=== PATIENT | male | born 1980 | race Caucasian/White ===

== ENCOUNTER 2016-12-22 08:25 | Emergency (ER) | payer SELFPAY ==
[~2016-12-22] VITALS: Ht 172.7 cm; Wt 48.0 kg
[~2016-12-22 08:25] MED LIST: Z.0.NO CURRENT MEDS
[2016-12-22 08:40] VITALS: BP 114/83; PULSE 104; RESP 14; TEMP 98.7; O2SAT 96
--- NOTE | 2016-12-22 10:10 | PD ---
HPI Chief Complaint: Skin Problem Time Seen by Provider: 09:57 Travel History International Travel<30 days: No Contact w/Intl Traveler<30days: No Traveled to known affect area: No History of Present Illness HPI HAS HAD SKIN RASH FOR ABOUT A MONTH THAT HAS NOT GONE AWAY, DIFFUSE THROUGHOUT BODY ALTHOUGH AT FIRST IT WAS ONLY TO ELBOW AND KNEES AREAS. TODAY HE ALSO C/O SOB X SINCE THIS MORNING WHICH NOW HAS RESOLVED?, DENIES ASSOC SYMPTOMS OF FEVER /CP/COUGH/N/V/D/ABD PAIN/CP AT THIS POINT. PFSH Past Medical History Medical History: Denies Significant Hx Diminished Hearing: No Past Surgical History Surgical History: No Previous Surgery Social History Alcohol Use: Yes (OCC) Tobacco Use: Yes (FORMER) Substance Use: No Allergies-Medications (Allergen,Severity, Reaction): Coded Allergies: No Known Allergies (Verified , 12/22/16) Reported Meds & Prescriptions Reported Meds & Active Scripts Active No Active Prescriptions or Reported Medications Review of Systems ROS Limitations: Other: (VERY THIN BODY HABITUS) Except as stated in HPI: all other systems reviewed are Neg Skin: Positive Rash (AT LEAST 1 MONTH LONG AND DIFFUSE THROUGHOUT BODY ) Physical Exam Narrative GENERAL: THIN BODY HABITUS SKIN: Warm and dry WITH MACULOPAPULAR RASH NOTED THROUGHOUT BODY INCLUDING PALMS AND SOLES WELL. HEAD: Atraumatic. Normocephalic. EYES: Pupils equal and round. No scleral icterus. No injection or drainage. ENT: No nasal bleeding or discharge. Mucous membranes pink and moist. NECK: Trachea midline. No JVD. CARDIOVASCULAR: Regular rate and rhythm. RESPIRATORY: No accessory muscle use. Clear to auscultation. Breath sounds equal bilaterally. GASTROINTESTINAL: Abdomen soft, non-tender, nondistended. Hepatic and splenic margins not palpable. MUSCULOSKELETAL: Extremities without clubbing, cyanosis, or edema. No obvious deformities. NEUROLOGICAL: Awake and alert. No obvious cranial nerve deficits. Motor grossly within normal limits. Five out of 5 muscle strength in the arms and legs. Normal speech. PSYCHIATRIC: Appropriate mood and affect; insight and judgment normal. Data Data Last Documented VS Vital Signs Date Time Temp Pulse Resp B/P Pulse Ox O2 Delivery O2 Flow Rate FiO2 12/22/16 10:57 78 16 128/75 98 Room Air 12/22/16 08:40 98.7 Orders Complete Blood Count With Diff (12/22/16 10:10) Comprehensive Metabolic Panel (12/22/16 10:10) B-Type Natriuretic Peptide (12/22/16 10:10) D-Dimer (12/22/16 10:10) Chest, Single Ap (12/22/16 10:10) Ct Pulmonary Angiogram (12/22/16 11:09) Iohexol 350 Inj (Omnipaque 350 Inj) (12/22/16 11:44) Labs Laboratory Tests Test 12/22/16 10:20 White Blood Count 10.3 TH/MM3 Red Blood Count 5.38 MIL/MM3 Hemoglobin 16.0 GM/DL Hematocrit 47.7 % Mean Corpuscular Volume 88.6 FL Mean Corpuscular Hemoglobin 29.8 PG Mean Corpuscular Hemoglobin 33.7 % Concent Red Cell Distribution Width 12.9 % Platelet Count 199 TH/MM3 Mean Platelet Volume 8.7 FL Neutrophils (%) (Auto) 77.0 % Lymphocytes (%) (Auto) 12.2 % Monocytes (%) (Auto) 8.0 % Eosinophils (%) (Auto) 0.3 % Basophils (%) (Auto) 2.5 % Neutrophils # (Auto) 7.9 TH/MM3 Lymphocytes # (Auto) 1.3 TH/MM3 Monocytes # (Auto) 0.8 TH/MM3 Eosinophils # (Auto) 0.0 TH/MM3 Basophils # (Auto) 0.3 TH/MM3 CBC Comment DIFF FINAL Differential Comment D-Dimer Quantitative (PE/DVT) 0.54 MG/L FEU Sodium Level 138 MEQ/L Potassium Level 3.3 MEQ/L Chloride Level 99 MEQ/L Carbon Dioxide Level 26.7 MEQ/L Anion Gap 12 MEQ/L Blood Urea Nitrogen 8 MG/DL Creatinine 0.87 MG/DL Estimat Glomerular Filtration 98 ML/MIN Rate Random Glucose 122 MG/DL Calcium Level 9.4 MG/DL Total Bilirubin 1.4 MG/DL Aspartate Amino Transf 16 U/L (AST/SGOT) Alanine Aminotransferase 22 U/L (ALT/SGPT) Alkaline Phosphatase 70 U/L B-Type Natriuretic Peptide 6 PG/ML Total Protein 8.3 GM/DL Albumin 4.7 GM/DL [facility] Medical Decision Making Medical Screen Exam Complete: Yes Emergency Medical Condition: Yes Medical Record Reviewed: Yes Differential Diagnosis RASH V VIRAL/BACTERIAL EXANTHEM V PNA V PE Narrative Course PT STABLE, WITH NO E/O PE ON CT CHEST, WILL GIVE BICILLIN AND REFER TO OUTPATIENT CLINIC Diagnosis Primary Impression: Rash and other nonspecific skin eruption Patient Instructions: Acute Rash (ED), General Instructions Scripts No Active Prescriptions or Reported Meds Disposition: 01 DISCHARGE HOME Condition: Stable Gerald Yen MD Dec 22, 2016 10:10
[2016-12-22 10:32] LABS: AUTOMATED NEUTROPHIL # 7.9 TH/MM3 (1.8-7.7); BASOPHIL # 0.3 TH/MM3 (0-0.2); BASOPHIL % 2.5 % (0.0-2.0); EOSINOPHIL % 0.3 % (0.0-4.0); HEMATOCRIT 47.7 % (39.0-51.0); LYMPH % 12.2 % (9.0-44.0); LYMPHOCYTE # 1.3 TH/MM3 (1.0-4.8); MEAN CELL VOLUME 88.6 FL (80.0-100.0); MEAN CORPUSCULAR HEMOGLOBIN 29.8 PG (27.0-34.0); MEAN CORPUSCULAR HGB CONC 33.7 % (32.0-36.0); PLATELET COUNT 199 TH/MM3 (150-450); RED BLOOD COUNT 5.38 MIL/MM3 (4.50-5.90); RED CELL DISTRIBUTION WIDTH 12.9 % (11.6-17.2); WHITE BLOOD COUNT 10.3 TH/MM3 (4.0-11.0)
[2016-12-22 10:34] LABS: HEMO FLAGS DIFF FINAL
[2016-12-22 10:40] LABS: CHLORIDE 99 MEQ/L (98-107); POTASSIUM 3.3 MEQ/L (3.5-5.1); SODIUM (NA) 138 MEQ/L (136-145)
--- NOTE | 2016-12-22 10:42 | RADRPT ---
EXAM DATE/TIME: 12/22/2016 10:34 [facility] COMPARISON: No previous studies available for comparison. INDICATIONS : Short of breath MEDICAL HISTORY : None. SURGICAL HISTORY : None. ENCOUNTER: Initial ACUITY: 1 day PAIN SCORE: 0/10 LOCATION: Bilateral chest FINDINGS: A single view of the chest demonstrates the lungs to be symmetrically aerated without evidence of mas s, infiltrate or effusion. The cardiomediastinal contours are unremarkable. Osseous structures are intact. CONCLUSION: Normal examination for a patient of this age. Bhanu Rainey MD on December 22, 2016 at 10:39 Board Certified Radiologist. This report was verified electronically.
[2016-12-22 10:43] LABS: ANION GAP 12 MEQ/L (5-15); BICARBONATE 26.7 MEQ/L (21.0-32.0)
[2016-12-22 10:44] LABS: BLOOD UREA NITROGEN 8 MG/DL (7-18)
[2016-12-22 10:47] LABS: ALT (GPT) 22 U/L (12-78); AST (GOT) 16 U/L (15-37); GLOMERULAR FILTRATION RATE 98 ML/MIN (>89)
[2016-12-22 10:48] LABS: TOTAL BILIRUBIN ADULT 1.4 MG/DL (0.2-1.0)
[2016-12-22 10:49] LABS: ALKALINE PHOSPHATASE 70 U/L (45-117)
[2016-12-22 10:57] VITALS: BP 128/75; PULSE 78; RESP 16; O2SAT 98
[2016-12-22] MEDS ORDERED: IOHEXOL 350 MG/ML 10 ML VIAL (for RAD DIAG) IV ONE (11:44)
--- NOTE | 2016-12-22 11:48 | RADRPT ---
EXAM DATE/TIME: 12/22/2016 11:20 [facility] COMPARISON: No previous studies available for comparison. INDICATIONS : Patient has shortness of breath and a rash. IV CONTRAST: 99 cc Omnipaque 350 (iohexol) IV RADIATION DOSE: 5.79 CTDIvol (mGy) MEDICAL HISTORY : None Possible scabes. SURGICAL HISTORY : None. ENCOUNTER: Initial ACUITY: 1 day PAIN SCALE: 5/10 LOCATION: Bilateral chest TECHNIQUE: Volumetric scanning of the chest was performed using a pulmonary embolism protocol MIP images were re constructed. Using automated exposure control and adjustment of the mA and/or kV according to patien t size, radiation dose was kept as low as reasonably achievable to obtain optimal diagnostic quality images. DICOM format image data is available electronically for review and comparison. FINDINGS: PULMONARY ARTERIES: No filling defects are seen in the pulmonary arteries through the segmental level. LUNGS: There is no consolidation or pneumothorax . No concerning pulmonary nodule is visualized. PLEURAE: There is no pleural thickening or pleural effusion. MEDIASTINUM: There is good visualization of the great vessels of the middle mediastinum. No evidence of mediastin al or hilar adenopathy/mass. MUSCULOSKELETAL: Within normal limits for patient age. MISCELLANEOUS: The visualized upper abdominal organs demonstrate no acute abnormality. CONCLUSION: 1. No evidence of PE. 2. No acute infiltrates. Bhanu Rainey MD on December 22, 2016 at 11:43 Board Certified Radiologist. This report was verified electronically.
[2016-12-22] MEDS ORDERED: PENICILLIN G BENZATHINE 2,400,000 UNITS/4 ML SYRINGE IM ONE (12:30)
[2016-12-22] MEDS ORDERED: PENICILLIN G BENZATHINE 1,200,000 UNITS/2 ML SYRINGE IM ONE (12:45)
== END 2016-12-22 13:35 | disposition home or self-care (01) ==
LOC: PHED 08:25
DX: R21 Rash and other nonspecific skin eruption (principal); Z87.891 Personal history of nicotine dependence
CPT/HCPCS: 71010; 71275; 80053; 83880; 85025; 85379; 96372; 99285; J0561; Q9967

== ENCOUNTER 2016-12-23 23:26 | Emergency (ER) | payer SELFPAY ==
[~2016-12-23] VITALS: Ht 172.7 cm; Wt 48.8 kg
[2016-12-23 23:30] VITALS: BP 111/76; PULSE 107; RESP 16; TEMP 99.2; O2SAT 97
--- NOTE | 2016-12-24 00:15 | PD ---
HPI Chief Complaint: Respiratory Distress Time Seen by Provider: 00:12 Travel History International Travel<30 days: No Contact w/Intl Traveler<30days: No Traveled to known affect area: No History of Present Illness HPI The patient is a 36-year-old male who came in because of difficulty breathing when laying down. This apparently has resolved, he does not have any problem with breathing laying down now. He does have generalized weakness and has a decreased appetite since yesterday. He denies any nausea, vomiting or diarrhea. He denies any fever although he does have a 99.2 temperature here. He denies any dysuria, frequency or urgency. He quit smoking 5 years ago. He states he has had very little feet all day today. [facility] Past Medical History Medical History: Denies Significant Hx Diminished Hearing: No Tetanus Vaccination: Unknown Influenza Vaccination: No Past Surgical History Surgical History: No Previous Surgery Social History Alcohol Use: Yes (OCC) Tobacco Use: Yes (FORMER) Substance Use: No Allergies-Medications (Allergen,Severity, Reaction): Coded Allergies: No Known Allergies (Verified , 12/23/16) Reported Meds & Prescriptions Reported Meds & Active Scripts Active No Active Prescriptions or Reported Medications Review of Systems Except as stated in HPI: all other systems reviewed are Neg Physical Exam Narrative GENERAL: The patient appears thin but is alert and oriented 3. He appears slightly dehydrated. His vital signs show temperature 99.2 with a heart rate of 107 but are otherwise normal. SKIN: Focused skin assessment warm/dry. HEAD: Atraumatic. Normocephalic. EYES: Pupils equal and round. No scleral icterus. No injection or drainage. ENT: No nasal bleeding or discharge. Mucous membranes pink and moist. NECK: Trachea midline. No JVD. CARDIOVASCULAR: Regular rate and rhythm. No murmur appreciated. RESPIRATORY: No accessory muscle use. Clear to auscultation. Breath sounds equal bilaterally. GASTROINTESTINAL: Abdomen soft, non-tender, nondistended. Hepatic and splenic margins not palpable. No guarding or rebound is present. MUSCULOSKELETAL: No obvious deformities. No clubbing. No cyanosis. No edema. NEUROLOGICAL: Awake and alert. No obvious cranial nerve deficits. Motor grossly within normal limits. Normal speech. PSYCHIATRIC: Appropriate mood and affect; insight and judgment normal. Data Data Last Documented VS Vital Signs Date Time Temp Pulse Resp B/P Pulse Ox O2 Delivery O2 Flow Rate FiO2 12/24/16 00:40 85 18 112/72 98 Room Air 12/23/16 23:30 99.2 Orders Complete Blood Count With Diff (12/24/16 00:12) Comprehensive Metabolic Panel (12/24/16 00:12) Labs Laboratory Tests Test 12/24/16 00:28 White Blood Count 10.1 TH/MM3 Red Blood Count 4.96 MIL/MM3 Hemoglobin 14.9 GM/DL Hematocrit 42.9 % Mean Corpuscular Volume 86.5 FL Mean Corpuscular Hemoglobin 30.0 PG Mean Corpuscular Hemoglobin 34.7 % Concent Red Cell Distribution Width 12.6 % Platelet Count 191 TH/MM3 Mean Platelet Volume 8.4 FL Neutrophils (%) (Auto) 73.9 % Lymphocytes (%) (Auto) 14.2 % Monocytes (%) (Auto) 10.6 % Eosinophils (%) (Auto) 0.6 % Basophils (%) (Auto) 0.7 % Neutrophils # (Auto) 7.4 TH/MM3 Lymphocytes # (Auto) 1.4 TH/MM3 Monocytes # (Auto) 1.1 TH/MM3 Eosinophils # (Auto) 0.1 TH/MM3 Basophils # (Auto) 0.1 TH/MM3 CBC Comment DIFF FINAL Differential Comment Sodium Level 139 MEQ/L Potassium Level 2.9 MEQ/L Chloride Level 101 MEQ/L Carbon Dioxide Level 26.5 MEQ/L Anion Gap 12 MEQ/L Blood Urea Nitrogen 7 MG/DL Creatinine 0.80 MG/DL Estimat Glomerular Filtration 108 ML/MIN Rate Random Glucose 118 MG/DL Calcium Level 8.7 MG/DL Total Bilirubin 1.7 MG/DL Aspartate Amino Transf 16 U/L (AST/SGOT) Alanine Aminotransferase 21 U/L (ALT/SGPT) Alkaline Phosphatase 62 U/L Total Protein 7.6 GM/DL Albumin 4.4 GM/DL [facility] Medical Decision Making Medical Screen Exam Complete: Yes Emergency Medical Condition: Yes Medical Record Reviewed: Yes Differential Diagnosis Viral syndrome, pneumonia, bronchitis, anxiety, dehydration, electrolyte disorder, renal insufficiency, congestive heart failurehighly unlikely Narrative Course The patient likely has a viral syndrome. The CBC is normal which suggest viral etiology. He does have a hypokalemia. The bilirubin of 1.7 white represents cholestasis. Plan: The patient will be given a potassium supplement for 7 days. Diagnosis Primary Impression: Viral syndrome Additional Impression: Hypokalemia Additional Instructions: The potassium pill is one tablet daily for 7 days. He will need to follow-up with his primary care physician this week. Med/Other Pt SpecificInfo: Prescription(s) given Scripts Potassium Chloride ER (K-Tab)10 Meq Tab10 Meq PO DAILY 7 Days Ref 0 Prov:Jasson Johnson MD 12/24/16 Disposition: 01 DISCHARGE HOME Condition: Stable Jasson Johnson MD Dec 24, 2016 00:15
[2016-12-24 00:35] LABS: AUTOMATED NEUTROPHIL # 7.4 TH/MM3 (1.8-7.7); BASOPHIL # 0.1 TH/MM3 (0-0.2); BASOPHIL % 0.7 % (0.0-2.0); EOSINOPHIL # 0.1 TH/MM3 (0-0.4); EOSINOPHIL % 0.6 % (0.0-4.0); HEMATOCRIT 42.9 % (39.0-51.0); HEMO FLAGS DIFF FINAL; LYMPH % 14.2 % (9.0-44.0); LYMPHOCYTE # 1.4 TH/MM3 (1.0-4.8); MEAN CELL VOLUME 86.5 FL (80.0-100.0); MEAN CORPUSCULAR HGB CONC 34.7 % (32.0-36.0); MONO % 10.6 % (0.0-8.0); NEUT % 73.9 % (16.0-70.0); PLATELET COUNT 191 TH/MM3 (150-450); RED BLOOD COUNT 4.96 MIL/MM3 (4.50-5.90); RED CELL DISTRIBUTION WIDTH 12.6 % (11.6-17.2); WHITE BLOOD COUNT 10.1 TH/MM3 (4.0-11.0)
[2016-12-24 00:40] VITALS: BP 112/72; PULSE 85; RESP 18; O2SAT 98
[2016-12-24 01:28] LABS: ALKALINE PHOSPHATASE 62 U/L (45-117); ALT (GPT) 21 U/L (12-78); ANION GAP 12 MEQ/L (5-15); AST (GOT) 16 U/L (15-37); BICARBONATE 26.5 MEQ/L (21.0-32.0); BLOOD UREA NITROGEN 7 MG/DL (7-18); CHLORIDE 101 MEQ/L (98-107); GLOMERULAR FILTRATION RATE 108 ML/MIN (>89); SODIUM (NA) 139 MEQ/L (136-145); TOTAL BILIRUBIN ADULT 1.7 MG/DL (0.2-1.0)
[2016-12-24 01:29] LABS: POTASSIUM 2.9 MEQ/L (3.5-5.1)
[2016-12-24] MEDS ORDERED: K-TA10TA PO (01:37)
[2016-12-24 01:40] VITALS: BP 118/75; TEMP 97.4
[2016-12-24] MEDS ORDERED: POTASSIUM CHLORIDE 20 MEQ CONTROLLED RELEASE TAB PO ONE (01:45)
== END 2016-12-24 01:58 | disposition home or self-care (01) ==
LOC: PHED 23:26
DX: B34.9 Viral infection, unspecified (principal); E87.6 Hypokalemia
CPT/HCPCS: 80053; 85025; 99283

== ENCOUNTER 2017-08-26 15:43 | Inpatient (IN) | payer SELFPAY ==
[2017-08-26] VITALS (7 sets, daily range): BP systolic 121–152; BP diastolic 73–80; PULSE 80–117; RESP 16–18; TEMP 97.1–99.3; O2SAT 95–98
[~2017-08-26] VITALS: Ht 175.3 cm; Wt 50.7 kg
[~2017-08-26 15:43] MED LIST changes: +K-TA10TA PO; -Z.0.NO CURRENT MEDS
[2017-08-26] MEDS ORDERED: SODIUM CHLOR 0.9% 1000 ML INJ 1,000 ML IV SCH (16:19)
--- NOTE | 2017-08-26 16:27 | PD ---
HPI . Abdominal pain Chief Complaint: Abdominal Pain Time Seen by Provider: 16:14 Travel History International Travel<30 days: No Contact w/Intl Traveler<30days: No Traveled to known affect area: No History of Present Illness HPI This patient presents with a chief complaint of abdominal pain. Onset was 2 days ago. The pain is located mostly in the right lower quadrant. He states that the pain comes and goes. He describes it as ocean waves and ebbing and flowing across his lower abdomen. He rates the pain 7/10. Pain is exacerbated by lifting his right leg and walking. Associated symptoms include a subjective fever and vomiting 2 days ago but none since. He has had no diarrhea. He denies any urinary tract symptoms. He denies any previous similar history. [facility] Past Medical History Medical History: Denies Significant Hx Diminished Hearing: No Tetanus Vaccination: < 5 Years Influenza Vaccination: No Past Surgical History Surgical History: No Previous Surgery Social History Alcohol Use: No Tobacco Use: No Substance Use: No Allergies-Medications (Allergen,Severity, Reaction): Coded Allergies: No Known Allergies (Verified Allergy, Unknown, 08/26/17) Reported Meds & Prescriptions Reported Meds & Active Scripts Active No Active Prescriptions or Reported Medications Review of Systems Except as stated in HPI: all other systems reviewed are Neg General / Constitutional: Positive: Fever, Chills Gastrointestinal: Positive: Nausea, Vomiting (2 days ago but none since), Abdominal Pain, No: Diarrhea Genitourinary: No: Urgency, Frequency, Dysuria Physical Exam Narrative GENERAL: Very thin man who is in no acute distress. His BMI is 16. SKIN: warm/dry. Normal color and turgor. HEAD: Normocephalic. Atraumatic. EYES: Pupils equal and round. No scleral icterus. No injection or drainage. ENT: No nasal bleeding or discharge. Mucous membranes pink and moist. NECK: Trachea midline. Full range of motion without pain.. CARDIOVASCULAR: Sinus tachycardia. RESPIRATORY: No accessory muscle use. Clear to auscultation. Breath sounds equal bilaterally. GASTROINTESTINAL: Abdomen soft. Lower abdominal tenderness. No point tenderness. No guarding or rebound. Bowel sounds present. Nondistended. Lopez MUSCULOSKELETAL: No obvious deformities. NEUROLOGICAL: Awake and alert. No obvious cranial nerve deficits. Motor grossly within normal limits. Normal speech. PSYCHIATRIC: Appropriate mood and affect; insight and judgment normal. Data Data Last Documented VS Vital Signs Date Time Temp Pulse Resp B/P (MAP) Pulse Ox O2 Delivery O2 Flow Rate FiO2 08/26/17 15:45 98.4 117 18 137/80 (99) 98 Orders Orders Basic Metabolic Panel (Bmp) (08/26/17 16:19) Complete Blood Count With Diff (08/26/17 16:19) Urinalysis - C+S If Indicated (08/26/17 16:19) Ct Abd/Pel W Iv Contrast(Rout) (08/26/17 16:19) Iv Access Insert/Monitor (08/26/17 16:19) Morphine Inj (Morphine Inj) (08/26/17 16:30) Ondansetron Inj (Zofran Inj) (08/26/17 16:30) Sodium Chlor 0.9% 1000 Ml Inj (Ns 1000 M (08/26/17 16:19) Sodium Chloride 0.9% Flush (Ns Flush) (08/26/17 16:30) Iohexol 350 Inj (Omnipaque 350 Inj) (08/26/17 16:47) Piperacil-Tazo 3.375 Gm Premix (Zosyn 3. (08/26/17 17:30) Labs Laboratory Tests Test 08/26/17 16:38 08/26/17 16:39 Urine Color YELLOW Urine Turbidity CLEAR Urine pH 5.5 Urine Specific [place] 1.015 Urine Protein NEG mg/dL Urine Glucose (UA) NEG mg/dL Urine Ketones 15 mg/dL Urine Occult Blood NEG Urine Nitrite NEG Urine Bilirubin NEG Urine Leukocyte Esterase NEG Urine WBC 0-2 /hpf Urine Squamous Epithelial Cells 0-5 /hpf Urine Mucus FEW /lpf Microscopic Urinalysis Comment CULT NOT INDICATED White Blood Count 13.3 TH/MM3 Red Blood Count 5.20 MIL/MM3 Hemoglobin 15.3 GM/DL Hematocrit 47.0 % Mean Corpuscular Volume 90.3 FL Mean Corpuscular Hemoglobin 29.4 PG Mean Corpuscular Hemoglobin Concent 32.5 % Red Cell Distribution Width 13.1 % Platelet Count 175 TH/MM3 Mean Platelet Volume 9.1 FL Neutrophils (%) (Auto) 78.1 % Lymphocytes (%) (Auto) 8.2 % Monocytes (%) (Auto) 10.2 % Eosinophils (%) (Auto) 0.5 % Basophils (%) (Auto) 3.0 % Neutrophils # (Auto) 10.3 TH/MM3 Lymphocytes # (Auto) 1.1 TH/MM3 Monocytes # (Auto) 1.4 TH/MM3 Eosinophils # (Auto) 0.1 TH/MM3 Basophils # (Auto) 0.4 TH/MM3 CBC Comment DIFF FINAL Differential Comment Blood Urea Nitrogen 13 MG/DL Creatinine 0.84 MG/DL Random Glucose 130 MG/DL Calcium Level 8.7 MG/DL Sodium Level 134 MEQ/L Potassium Level 4.2 MEQ/L Chloride Level 100 MEQ/L Carbon Dioxide Level 25.1 MEQ/L Anion Gap 9 MEQ/L Estimat Glomerular Filtration Rate 102 ML/MIN [facility] Medical Decision Making Medical Screen Exam Complete: Yes Emergency Medical Condition: Yes Differential Diagnosis Differential diagnosis of abdominal pain includes but is not limited to gastritis, pancreatitis, hepatitis, gastroenteritis, constipation, urinary retention, peptic ulcer disease, diverticulitis or appendicitis Narrative Course This patient presents with a 2 day history of lower abdominal pain. He is tachycardic on exam. Abdominal pain workup is in process including a CT scan of his abdomen. In the meantime, he will be treated with IV fluids and IV morphine. CBC & BMP Diagram 08/26/17 16:39 Calcium Level 8.[address] scan shows acute appendicitis probably with localized perforation. The results of the CT scan have been discussed with the patient. I have consulted Dr. Barreto who will be in to see the patient. Dr. Barreto has requested Zosyn. This has been ordered. Physician Communication Physician Communication Dr. Barreto Diagnosis Primary Impression: Abdominal pain Qualified Codes: R10.31 - Right lower quadrant pain Additional Impression: Appendicitis Qualified Codes: K35.3 - Acute appendicitis with localized peritonitis Admitting Information Admitting Physician Requests: Observation Scripts No Active Prescriptions or Reported Meds Condition: Stable Charlene Herzog MD Aug 26, 2017 16:27
[2017-08-26] MEDS ORDERED: ONDANSETRON HCL 4 MG/2 ML VIAL IVP ONE (16:30)
[2017-08-26] MEDS ORDERED: MORPHINE SULFATE 4 MG/ML INJ IV PUSH ONE (16:30)
[2017-08-26] MEDS ORDERED: SODIUM CHLORIDE 0.9% FLUSH 10 ML FLUSH IV FLUSH PRN ×2 (16:30→18:00)
[2017-08-26] MEDS ORDERED: IOHEXOL 350 MG/ML 10 ML VIAL (for RAD DIAG) IVCONTRAST ONE (16:47)
[2017-08-26 16:51] LABS: BILIRUBIN, URINE NEG (NEG); BLOOD, URINE NEG (NEG); GLUCOSE,URINE NEG (NEG); KETONE, URINE 15 mg/dL (NEG); NITRITE,URINE NEG (NEG); PH, URINE 5.5 (5.0-8.5); URINE LEUKOCYTE ESTERASE NEG (NEG)
[2017-08-26 16:59] LABS: URINE COLOR YELLOW (YELLW/STRAW)
[2017-08-26 17:00] LABS: MUCUS URINE FEW /lpf (OCC); SQUAMOUS EPITHELIAL CELL URINE 0-5 /hpf (0-5); WBC, URINE 0-2 /hpf (0-5)
[2017-08-26 17:03] LABS: AUTOMATED NEUTROPHIL # 10.3 TH/MM3 (1.8-7.7); BASOPHIL # 0.4 TH/MM3 (0-0.2); EOSINOPHIL # 0.1 TH/MM3 (0-0.4); EOSINOPHIL % 0.5 % (0.0-4.0); HEMOGLOBIN 15.3 GM/DL (13.0-17.0); LYMPH % 8.2 % (9.0-44.0); LYMPHOCYTE # 1.1 TH/MM3 (1.0-4.8); MEAN CELL VOLUME 90.3 FL (80.0-100.0); MEAN CORPUSCULAR HEMOGLOBIN 29.4 PG (27.0-34.0); MEAN CORPUSCULAR HGB CONC 32.5 % (32.0-36.0); MEAN PLATELET VOLUME 9.1 FL (7.0-11.0); MONO % 10.2 % (0.0-8.0); MONOCYTE # 1.4 TH/MM3 (0-0.9); NEUT % 78.1 % (16.0-70.0); PLATELET COUNT 175 TH/MM3 (150-450); RED CELL DISTRIBUTION WIDTH 13.1 % (11.6-17.2); WHITE BLOOD COUNT 13.3 TH/MM3 (4.0-11.0)
[2017-08-26 17:07] LABS: CALCIUM 8.7 MG/DL (8.5-10.1)
[2017-08-26 17:08] LABS: BICARBONATE 25.1 MEQ/L (21.0-32.0)
[2017-08-26 17:11] LABS: CREATININE 0.84 MG/DL (0.60-1.30)
--- NOTE | 2017-08-26 17:19 | RADRPT ---
EXAM DATE/TIME: 08/26/2017 16:43 [facility] COMPARISON: No previous studies available for comparison. INDICATIONS : Right lower quadrant pain. IV CONTRAST: 90 cc Omnipaque 350 (iohexol) IV ORAL CONTRAST: No oral contrast ingested. RADIATION DOSE: 4.46 CTDIvol (mGy) MEDICAL HISTORY : None SURGICAL HISTORY : None. ENCOUNTER: Initial ACUITY: 3 days PAIN SCALE: 5/10 LOCATION: Right lower quadrant TECHNIQUE: Volumetric scanning of the abdomen and pelvis was performed. Using automated exposure control and ad justment of the mA and/or kV according to patient size, radiation dose was kept as low as reasonably achievable to obtain optimal diagnostic quality images. DICOM format image data is available electro nically for review and comparison. FINDINGS: LOWER LUNGS: The visualized lower lungs are clear. LIVER: Homogeneous enhancement with at least 5 incidental low density lesions which are too small to charact erize. No highly suspicious liver lesion is seen. There is no dilation of the biliary tree. No calc ified gallstones. SPLEEN: Normal size without lesion. PANCREAS: Within normal limits. KIDNEYS: Normal in size and shape. There is no mass, stone or hydronephrosis. ADRENAL GLANDS: Within normal limits. VASCULAR: There is no aortic aneurysm. BOWEL/MESENTERY: The stomach and small bowel are within normal limits. Terminal ileum is normal. There is a dilated fl uid-filled appendix measuring 14 mm. It contains an 8 mm appendicolith and there is surrounding fluid . No free intraperitoneal air is identified. ABDOMINAL WALL: Within normal limits. RETROPERITONEUM: There is no lymphadenopathy. BLADDER: No wall thickening or mass. REPRODUCTIVE: Within normal limits. INGUINAL: There is no lymphadenopathy or hernia. MUSCULOSKELETAL: No acute osseous abnormality is identified. Bone islands are present. CONCLUSION: 1. Abnormal findings diagnostic of acute appendicitis. The appendix is abnormally dilated, fluid-fill ed and contains an appendicolith. There is surrounding inflammatory change. This finding was telephon ed to the ordering physician. 2. No other acute finding is identified. Pipo Wu MD on August 26, 2017 at 17:13 Board Certified Radiologist. This report was verified electronically.
[2017-08-26] MEDS ORDERED: PIPERACIL-TAZO 3.375 GM PREMIX 50 ML IV ONE (17:30)
[2017-08-26] MEDS ORDERED: ONDANSETRON HCL 4 MG/2 ML VIAL IV PUSH PRN (18:00)
[2017-08-26] MEDS ORDERED: Post-op Orders (for Pharmacy) XX ONE (18:00)
[2017-08-26] MEDS ORDERED: HYDROmorphone HCL PF 1 MG/ML VIAL IV PUSH PRN (18:00)
[2017-08-26] MEDS ORDERED: ACETAMINOPHEN/HYDROcodone 325 MG/5 MG TAB PO PRN (18:00)
[2017-08-26] MEDS ORDERED: BUPIVACAINE/EPINEPHRINE 0.25% 50 ML VIAL ONE (20:27)
[2017-08-26] MEDS ORDERED: METOPROLOL TARTRATE 25 MG TAB PO PRN (20:30)
[2017-08-26] MEDS ORDERED: CHLORHEXIDINE GLUCONATE 2 % 1 PACK (2 CLOTHS) TOPICAL PRN (20:30)
[2017-08-26] MEDS ORDERED: POVIDONE IODINE 5% (ANTISEPSIS KIT) 4 APPLICATIONS EACH NARE PRN (20:30)
[2017-08-26] MEDS ORDERED: SODIUM CHLORID 0.9% 500 ML IV PRN (20:30)
[2017-08-26] MEDS ORDERED: LACTATED RINGER'S 1000 ML IV PRN (20:30)
[2017-08-26] MEDS ORDERED: MIDAZOLAM HCL 2 MG/2 ML VIAL ONE (20:40)
[2017-08-26] MEDS: SODIUM CHLORIDE 0.9% FLUSH 10 ML FLUSH IV FLUSH SCH (21:00)
[2017-08-26] MEDS: DOCUSATE SODIUM 100 MG CAP PO SCH (21:00)
[2017-08-26] MEDS ORDERED: ACETAMINOPHEN 1000 MG/100 ML 100 ML IV ONE (21:01)
[2017-08-26] MEDS ORDERED: FAMOTIDINE 20 MG/2 ML VIAL ONE (21:02)
--- NOTE | 2017-08-26 21:19 | HHI.PR ---
Immediate Post Op Note Procedure Date: Aug 26, 2017 Pre Op Diagnosis: acute appendicitis Post Op Diagnosis: same Surgeon: Iam Barreto MD Instrument And Electrical Technician(s): see or sheet Procedure: lap appy Findings: distended appendix, localized perforation Complications: none Specimen(s) removed: appendix Estimated blood loss: 5cc Anesthesia: General Drains: SWATI Patient to: PACU Patient Condition: Good Iam Barreto MD Aug 26, 2017 21:19
--- NOTE | 2017-08-27 03:51 | MH ---
cc: Iam Barreto MD DATE OF ADMISSION: 08/26/2017 CHIEF COMPLAINT: Abdominal pain. HISTORY OF PRESENT ILLNESS: The patient is a 37-year-old male who presents with acute onset of right lower quadrant abdominal pain. He states the pain started somewhat diffuse umbilical and migrated to right lower quadrant. He stated the pain started on Saturday, 2 days ago and progressively got worse today. He noted pain at that time was 8/10. Currently it is a 7/10, worse with movement, better when lying still. The patient has never had pain significant like this before. He did have episodes of vomiting and did have some fevers as well. He came to the emergency department for further evaluation including white blood cell count of 13,[address] scan showing acute appendicitis. Therefore surgery was consulted. PAST MEDICAL HISTORY: The patient has no past medical history. PAST SURGICAL HISTORY: The patient has no surgeries. SOCIAL HISTORY: Denies smoking, ETOH or IVDA. ALLERGIES: NO KNOWN DRUG ALLERGIES. MEDICATIONS: See EMR. FAMILY HISTORY: Denies coronary artery disease. REVIEW OF SYSTEMS: GENERAL: Complained of fever and chills. HEENT: Denies eye pain, ear pain. NECK: Denies ____ pain. LUNGS: Denies cough or wheeze. HEART: Denies chest pain or palpitations. ABDOMEN: Denies nausea and vomiting. Complains of abdominal pain, complains of vomiting. GENITOURINARY: Denies dysuria, hematuria. ENDOCRINE: Denies polyuria, polydipsia. EXTREMITIES: Denies arthralgias, myalgias. NEUROLOGIC: Denies numbness or tingling. PSYCHIATRIC: Denies changes in sensorium. PHYSICAL EXAMINATION: GENERAL: The patient in no acute distress. VITAL SIGNS: Temperature 98.4, plus 117, blood pressure 137/80, respirations 18, saturation 98%. HEENT: Pupils equal, round and reactive. NECK: Supple. Trachea midline. LUNGS: Clear to auscultation bilaterally. HEART: S1, S2 regular rhythm. ABDOMEN: Soft, positive tension to palpation right lower quadrant, mild rebound right lower quadrant. EXTREMITIES: Warm, well perfused. NEUROLOGIC: AAO x 4. 5/5 motor all extremities. PSYCHIATRIC: Appropriate insight. LABORATORY AND DIAGNOSTIC DATA: WBC 13.3, hemoglobin 15.3, hematocrit 47, platelets 175. Sodium 134, potassium 4.2, chloride 100, BUN 13, creatinine 0.8, calcium 8.7. CT reviewed by myself showing acute appendicitis, no evidence of abscess on CT scan. ASSESSMENT: The patient is a 37-year-old male with acute appendicitis. PLAN: After full workup, the patient with above noted issues. Currently, patient needs to be NPO, IV fluids, IV pain control, IV antibiotics. Discussed with patient regarding emergent laparoscopic appendectomy. He understands, agrees and would like to proceed. MD LOI Escalante/rt , 09:07 PM , 03:38 AM
[2017-08-27] MEDS: PIPERACIL-TAZO 3.375 GM PREMIX 50 ML IV SCH ×3 (04:53→17:51)
[2017-08-27 07:46] LABS: CALCIUM 8.4 MG/DL (8.5-10.1)
[2017-08-27 07:47] LABS: AUTOMATED NEUTROPHIL # 14.4 TH/MM3 (1.8-7.7); BASOPHIL # 0.1 TH/MM3 (0-0.2); BASOPHIL % 0.5 % (0.0-2.0); BICARBONATE 28.2 MEQ/L (21.0-32.0); HEMATOCRIT 42.4 % (39.0-51.0); HEMOGLOBIN 14.3 GM/DL (13.0-17.0); LYMPH % 3.7 % (9.0-44.0); LYMPHOCYTE # 0.6 TH/MM3 (1.0-4.8); MEAN CELL VOLUME 90.9 FL (80.0-100.0); MEAN CORPUSCULAR HEMOGLOBIN 30.7 PG (27.0-34.0); MEAN CORPUSCULAR HGB CONC 33.8 % (32.0-36.0); MEAN PLATELET VOLUME 9.6 FL (7.0-11.0); MONO % 6.1 % (0.0-8.0); NEUT % 89.7 % (16.0-70.0); PLATELET COUNT 137 TH/MM3 (150-450); RED BLOOD COUNT 4.66 MIL/MM3 (4.50-5.90); RED CELL DISTRIBUTION WIDTH 13.1 % (11.6-17.2); WHITE BLOOD COUNT 16.1 TH/MM3 (4.0-11.0)
[2017-08-27 07:50] LABS: CREATININE 0.67 MG/DL (0.60-1.30)
[2017-08-27 08:00] VITALS: BP 93/50; PULSE 66; RESP 18; TEMP 97.3; O2SAT 97
[2017-08-27] MEDS: DOCUSATE SODIUM 100 MG CAP PO SCH ×2 (08:35→21:50)
[2017-08-27] MEDS: SODIUM CHLORIDE 0.9% FLUSH 10 ML FLUSH IV FLUSH SCH ×2 (08:36→21:50)
--- NOTE | 2017-08-27 10:44 | MP ---
cc: Iam Barreto MD DATE OF OPERATION: 08/26/2017 PREOPERATIVE DIAGNOSIS: Acute appendicitis. POSTOPERATIVE DIAGNOSIS: Acute appendicitis, localized perforation of appendix. SURGEON: Iam Barreto MD PROCEDURE PERFORMED: Laparoscopic appendectomy. WELL SHOOTER: See OR sheet. ANESTHESIA: GETA. INTRAVENOUS FLUIDS: See anesthesia sheet. ESTIMATED BLOOD LOSS: 5 mL. DRAINS: 10-Ecuadorean round Luis drain placed in the suprapubic area above appendiceal stump. FINDINGS: Localized perforation with feculent, contained perforated abscess around the appendix. SPECIMENS: Appendix. INDICATION: Patient is a 37-year-old male who presents with acute onset of abdominal pain in the right lower quadrant. Patient had CT scan findings of acute appendicitis; therefore, decision was made for laparoscopic appendectomy. Discussed with patient in detail. DETAILS OF PROCEDURE: The patient was taken to the operating room, placed in the supine position. He was prepped and draped in the usual sterile fashion after induction of general endotracheal anesthesia. Brief time-out identifying correct patient, procedure, surgical site and we were all in agreement. Attention was first directed to the umbilicus, where local anesthetic injected, stab ankita incision made with an 11 blade. The umbilicus was grasped with a towel clamp and elevated anteriorly. The Veress needle was placed and intraabdominal placement confirmed with saline drop test. Abdomen insufflated to 15 mm pneumoperitoneum. Veress needle changed for a 5 mm Visiport trocar and entered safely. No evidence of injury on observation. Two other trocars were placed; one suprapubic 5 mm, followed by a left lower quadrant 12 mm. Patient placed in Trendelenburg, airplaned to the left. The right lower quadrant was explored. Upon its exploration, there was noted to be localized perforation with feculent abscess material in the right lower quadrant. It looked like the midappendix had perforated in this area. Appendix was mobilized and dissected out in the usual fashion. The monopolar [place] was used to create a window in the base of the mesoappendix. ALEXIS-35 was used to transect the base of the appendix, then the mesoappendix was transected as well. The appendix was placed in the appendiceal bag and removed from the left lower quadrant of the abdomen. Irrigation used to irrigate the right lower quadrant until effluent was clear. Small 10-Ecuadorean round drain was placed in the right lower quadrant through the suprapubic incision and after the abdomen was irrigated. This was secured in place with 2-0 nylon. Abdomen desufflated, the left lower quadrant ports were removed, was closed with 0 Vicryl to the fascia, 4-0 Monocryl was used for subcuticular suture. The sterile dressings were placed. Of note, the appendix was removed with the Endo Catch bag through the left lower quadrant port. Patient tolerated the procedure well, was moving arms with no complications. All lap and instrument counts were correct at the end of the procedure. The patient was extubated and taken to the PACU. MD LOI Escalante/PH[facility] , 09:06 AM , 10:40 AM
[2017-08-27 12:00] VITALS: BP 100/56; PULSE 66; RESP 18; TEMP 97.4; O2SAT 100
--- NOTE | 2017-08-27 12:58 | HHI.PR ---
Subjective Subjective Notes Resting in bed Still feeling a little "sluggish" Objective Vitals/I&O Vital Signs Date Time Temp Pulse Resp B/P (MAP) Pulse Ox O2 Delivery O2 Flow Rate FiO2 08/26/17 23:02 97.1 86 18 131/76 (94) 95 08/26/17 23:00 Room Air 08/26/17 22:30 5 Labs Laboratory Tests Test 08/26/17 16:38 08/26/17 16:39 08/27/17 06:35 Urine Color YELLOW Urine Turbidity CLEAR Urine pH 5.5 Urine Specific [place] 1.015 Urine Protein NEG Urine Glucose (UA) NEG Urine Ketones 15 Urine Occult Blood NEG Urine Nitrite NEG Urine Bilirubin NEG Urine Leukocyte Esterase NEG Urine WBC 0-2 Urine Squamous Epithelial Cells 0-5 Urine Mucus FEW Microscopic Urinalysis Comment CULT NOT INDICATED White Blood Count 13.3 16.1 Red Blood Count 5.20 4.66 Hemoglobin 15.3 14.3 Hematocrit 47.0 42.4 Mean Corpuscular Volume 90.3 90.9 Mean Corpuscular Hemoglobin 29.4 30.7 Mean Corpuscular Hemoglobin Concent 32.5 33.8 Red Cell Distribution Width 13.1 13.1 Platelet Count 175 137 Mean Platelet Volume 9.1 9.6 Neutrophils (%) (Auto) 78.1 89.7 Lymphocytes (%) (Auto) 8.2 3.7 Monocytes (%) (Auto) 10.2 6.1 Eosinophils (%) (Auto) 0.5 0.0 Basophils (%) (Auto) 3.0 0.5 Neutrophils # (Auto) 10.3 14.4 Lymphocytes # (Auto) 1.1 0.6 Monocytes # (Auto) 1.4 1.0 Eosinophils # (Auto) 0.1 0.0 Basophils # (Auto) 0.4 0.1 CBC Comment DIFF FINAL DIFF FINAL Differential Comment Blood Urea Nitrogen 13 8 Creatinine 0.84 0.67 Random Glucose 130 140 Calcium Level 8.7 8.4 Sodium Level 134 141 Potassium Level 4.2 3.8 Chloride Level 100 105 Carbon Dioxide Level 25.1 28.2 Anion Gap 9 8 Estimat Glomerular Filtration Rate 102 132 Cardiovascular: Regular Lungs: Clear Abdomen: Other (flat abdomen; mildly tender in RLQ; SWATI with sanginous fluid ) Extremities: No edema A/P Assessment and Plan 34 year old male POD1 lap appy; perforation -Continue clear liquids; high risk for ileus -Continue IVF until PO intake adequate -Zosyn -Continue routine SWATI management -OOB as tolerated Jasmine Watts/[employer] ENGINEER Aug 27, 2017 12:58
[2017-08-27 16:00] VITALS: BP 103/57; PULSE 76; RESP 18; TEMP 96.1; O2SAT 100
[2017-08-27 20:00] VITALS: BP 106/59; PULSE 72; RESP 20; TEMP 96.1; O2SAT 98
[2017-08-27] MEDS: ACETAMINOPHEN/HYDROcodone 325 MG/5 MG TAB PO PRN (20:28)
[2017-08-27] MEDS ORDERED: HYDROmorphone HCL PF 2 MG/ML VIAL IV PRN (23:45)
[2017-08-28] VITALS: BP 96/54; PULSE 63; RESP 20; TEMP 97.3; O2SAT 96
[2017-08-28] MEDS: PIPERACIL-TAZO 3.375 GM PREMIX 50 ML IV SCH ×3 (01:52→17:01)
[2017-08-28 05:47] VITALS: BP 108/62; PULSE 69; RESP 18; TEMP 96.8; O2SAT 96
[2017-08-28] MEDS: ACETAMINOPHEN/HYDROcodone 325 MG/5 MG TAB PO PRN ×2 (05:49→16:42)
[2017-08-28 06:35] LABS: AUTOMATED NEUTROPHIL # 7.3 TH/MM3 (1.8-7.7); BASOPHIL % 0.4 % (0.0-2.0); EOSINOPHIL # 0.1 TH/MM3 (0-0.4); EOSINOPHIL % 1.2 % (0.0-4.0); HEMATOCRIT 39.7 % (39.0-51.0); HEMOGLOBIN 13.1 GM/DL (13.0-17.0); LYMPH % 18.1 % (9.0-44.0); LYMPHOCYTE # 1.8 TH/MM3 (1.0-4.8); MEAN PLATELET VOLUME 9.5 FL (7.0-11.0); MONO % 9.6 % (0.0-8.0); NEUT % 70.7 % (16.0-70.0); PLATELET COUNT 131 TH/MM3 (150-450); RED BLOOD COUNT 4.36 MIL/MM3 (4.50-5.90); RED CELL DISTRIBUTION WIDTH 13.4 % (11.6-17.2); WHITE BLOOD COUNT 10.2 TH/MM3 (4.0-11.0)
--- NOTE | 2017-08-28 06:38 | HHI.PR ---
Subjective Subjective Notes doing better, no nausea, small flatus Objective Vitals/I&O Vital Signs Date Time Temp Pulse Resp B/P (MAP) Pulse Ox O2 Delivery O2 Flow Rate FiO2 08/28/17 05:47 96.8 69 18 108/62 (77) 96 08/26/17 23:00 Room Air 08/26/17 22:30 5 Labs Laboratory Tests Test 08/28/17 05:55 White Blood Count 10.2 Red Blood Count 4.36 Hemoglobin 13.1 Hematocrit 39.7 Mean Corpuscular Volume 91.0 Mean Corpuscular Hemoglobin 30.0 Mean Corpuscular Hemoglobin Concent 33.0 Red Cell Distribution Width 13.4 Platelet Count 131 Mean Platelet Volume 9.5 Neutrophils (%) (Auto) 70.7 Lymphocytes (%) (Auto) 18.1 Monocytes (%) (Auto) 9.6 Eosinophils (%) (Auto) 1.2 Basophils (%) (Auto) 0.4 Neutrophils # (Auto) 7.3 Lymphocytes # (Auto) 1.8 Monocytes # (Auto) 1.0 Eosinophils # (Auto) 0.1 Basophils # (Auto) 0.0 CBC Comment DIFF FINAL Differential Comment Cardiovascular: Regular Lungs: Clear Abdomen: Other (soft incisional tenderness, rylie serosang) A/P Assessment and Plan POD2 Lap appy for perforation PLAN Advance diet as tolerated abx pain control oob rylie sxn possible d/c home later today Iam Barreto MD Aug 28, 2017 06:38
[2017-08-28 06:42] LABS: CHLORIDE 106 MEQ/L (98-107); SODIUM (NA) 141 MEQ/L (136-145)
[2017-08-28 06:45] LABS: CALCIUM 8.3 MG/DL (8.5-10.1)
[2017-08-28 06:46] LABS: BICARBONATE 27.3 MEQ/L (21.0-32.0); BLOOD UREA NITROGEN 6 MG/DL (7-18); GLUCOSE,RANDOM 89 MG/DL (74-106)
[2017-08-28 06:49] LABS: ALT (GPT) 31 U/L (12-78); AST (GOT) 13 U/L (15-37); CREATININE 0.66 MG/DL (0.60-1.30); GLOMERULAR FILTRATION RATE 134 ML/MIN (>89)
[2017-08-28 06:51] LABS: TOTAL BILIRUBIN ADULT 2.4 MG/DL (0.2-1.0); TOTAL PROTEIN 6.3 GM/DL (6.4-8.2)
[2017-08-28 06:52] LABS: ALKALINE PHOSPHATASE 51 U/L (45-117)
[2017-08-28 08:00] VITALS: BP 91/53; PULSE 67; RESP 18; TEMP 97; O2SAT 97
[2017-08-28] MEDS: DOCUSATE SODIUM 100 MG CAP PO SCH ×2 (08:34→20:23)
[2017-08-28] MEDS: SODIUM CHLORIDE 0.9% FLUSH 10 ML FLUSH IV FLUSH SCH ×2 (08:35→20:26)
[2017-08-28 12:00] VITALS: BP 103/58; PULSE 77; RESP 18; TEMP 97; O2SAT 97
[2017-08-28 16:00] VITALS: BP 100/56; PULSE 68; RESP 18; TEMP 97; O2SAT 98
[2017-08-28 20:00] VITALS: BP 104/60; PULSE 67; RESP 16; TEMP 96.9; O2SAT 98
[2017-08-28] MEDS: ENOXAPARIN SODIUM 30 MG/0.3 ML SYRINGE SQ SCH (20:23)
[2017-08-28] MEDS: SODIUM CHLOR 0.45% 1000 ML INJ 1,000 ML IV SCH (20:26)
[2017-08-29] VITALS: BP 111/65; PULSE 82; RESP 15; TEMP 98.7; O2SAT 98
[2017-08-29] MEDS: PIPERACIL-TAZO 3.375 GM PREMIX 50 ML IV SCH (02:52)
[2017-08-29] MEDS: ACETAMINOPHEN/HYDROcodone 325 MG/5 MG TAB PO PRN (02:55)
[2017-08-29] MEDS: SODIUM CHLOR 0.45% 1000 ML INJ 1,000 ML IV SCH (06:11)
[2017-08-29 08:00] VITALS: BP 107/69; PULSE 64; RESP 16; TEMP 96.8; O2SAT 98
[2017-08-29] MEDS: DOCUSATE SODIUM 100 MG CAP PO SCH (08:21)
[2017-08-29] MEDS: ENOXAPARIN SODIUM 30 MG/0.3 ML SYRINGE SQ SCH (08:22)
[2017-08-29] MEDS: SODIUM CHLORIDE 0.9% FLUSH 10 ML FLUSH IV FLUSH SCH (08:22)
[2017-08-29] MEDS ORDERED: GLYCOPYRROLATE 1 MG/5 ML SYRINGE IV PUSH ONE (12:00)
[2017-08-29] MEDS ORDERED: STERILE WATER FOR INJECTION 20 ML VIAL IV ONE (12:00)
[2017-08-29] MEDS ORDERED: LIDOCAINE HCL 1% PF 5 ML SYRINGE OTHER ONE (12:00)
[2017-08-29] MEDS ORDERED: DEXAMETHASONE SOD PHOS 4 MG/ML VIAL IV ONE (12:00)
[2017-08-29] MEDS ORDERED: KETOROLAC TROMETHAMINE 30 MG/ML (IVP) VIAL IV PUSH ONE (12:00)
[2017-08-29] MEDS ORDERED: PHENYLEPH/NS 1000 MCG/10 ML SYR IV ONE (12:00)
[2017-08-29] MEDS ORDERED: SUCCINYLCHOLINE CHLORIDE 200 MG/10 ML VIAL IV ONE (12:00)
[2017-08-29] MEDS ORDERED: VECURONIUM BROMIDE 20 MG VIAL IV ONE (12:00)
[2017-08-29] MEDS ORDERED: NEOSTIGMINE 5 MG/5 ML SYRINGE IV PUSH ONE (12:00)
[2017-08-29] MEDS ORDERED: PROPOFOL 200 MG/20 ML AMP IV ONE (12:00)
[2017-08-29] MEDS ORDERED: ONDANSETRON HCL 4 MG/2 ML VIAL IV PUSH ONE (12:00)
== END 2017-08-29 09:50 | disposition home or self-care (01) | DRG 340 ==
LOC: PHED 15:43 → PHEDA 20:00 → PH3A 23:02
PROVIDERS: ADMIT Surgery; ATTEND Surgery
PROC: 0DTJ4ZZ Resection of Appendix, Percutaneous Endoscopic Approach (ICD-10-PCS; principal; 2017-08-26 21:15)
DX: K35.3 Acute appendicitis with localized peritonitis (principal)
CPT/HCPCS: 74177; 80048; 80053; 81001; 85025; 88304; 94150; 96365; 96375; J0131; J0330; J1100; J1650; J1885; J2250; J2270; J2370; J2405; J2543; J2710; J3010; J7030; J7120; Q9967